=== PATIENT | female | born 1970 | race Caucasian/White ===

== ENCOUNTER 2016-08-25 17:59 | Emergency (ER) | payer SELFPAY ==
[2016-08-25 18:07] VITALS: BMI 34.3
[2016-08-25] MEDS ORDERED: LABETALOL HCL 5 MG/1 ML (100MG/20 ML VIAL) IVPUSH ONE (18:48)
--- NOTE | 2016-08-25 18:48 | PDOC ---
History of Present Illness - General History Source: Patient Exam Limitations: No Limitations - History of Present Illness Initial Comments: CHIEF COMPLAINT: 45 y/o afebrile female with PMH HTN (pt decided to stop Enalipril 3 months ago) and fibromyalgia c/o chest discomfort today. HISTORY OF PRESENT ILLNESS: The patient states for the past few days hasn't felt "well", yesterday had a bad headache and today has had chest pain. She states the chest pain is retrosternal and radiates through to her back. Upon arrival to the ER her BP was 230/120. She states she also feels nauseous and is SOB. She denies [place] now, neck pain, f/c, n/v/d, cough, hemoptysis, abd pain, hematuria, dysuria. Vital signs on arrival are notable for pulse of 99 with BP of 230/120. REVIEW OF SYSTEMS: GENERAL/CONSTITUTIONAL: No fever/chills. No weakness. No weight change. HEAD, EYES, EARS, NOSE AND THROAT: No change in vision. No ear pain or discharge. No sore throat. CARDIOVASCULAR: +SOB and CP radiating to back RESPIRATORY: No cough, wheezing, or hemoptysis. GASTROINTESTINAL: No abd pain, nausea, vomiting, diarrhea. GENITOURINARY: No dysuria, frequency, or change in urination. MUSCULOSKELETAL: No joint or muscle swelling or pain. No neck pain. +back pain SKIN: No rash or easy bruising. NEUROLOGIC: No headache, vertigo, loss of consciousness, or loss of sensation. PHYSICAL EXAM: GENERAL: The patient is awake, alert, and fully oriented, in no acute distress. She is other littlejohn well appearing. She is not cool, pale or diaphoretic. HEAD: Normal with no signs of trauma. ENT: Pupils equal, round and reactive to light, extraocular movements intact, sclera anicteric, conjunctiva clear. Neck supple. LUNGS: Clear to auscultation bilaterally. Normal excursion. No respiratory distress or use of accessory muscles. CV: Rapid rate/regular rhythm, S1/S2, no MRG. Cap refill < 2 sec. ABDOMEN: Soft, non-distended, non-tender even to deep palpation, no hepatomegaly or splenomegaly, no masses. EXTREMITIES: Normal range of motion, no edema. NEUROLOGICAL: Normal speech, normal gait. CN II-XII grossly intact. PSYCH: Normal mood, normal affect. SKIN: Warm, dry, normal turgor, no rashes or lesions noted. <Gunjan Weller - Last Filed: 08/25/16 19:08> <Franki Cline - Last Filed: 08/26/16 01:29> - General Chief Complaint: Blood Pressure Problem Stated Complaint: Blood Pressure Problem Time Seen by Provider: 08/25/16 18:42 Past History - Past Medical History Disorders: Yes (ovarian cyst, status post hysterectomy) HTN: Yes Other medical history: fibromyalgia - Psycho/Social/Smoking Cessation Hx Anxiety: No Suicidal Ideation: No Smoking History: Never smoked Have you smoked in the past 12 months: No Information on smoking cessation initiated: No Hx Alcohol Use: No Drug/Substance Use Hx: No Substance Use Type: None <Gunjan Weller - Last Filed: 08/25/16 19:08> <Franki Cline - Last Filed: 08/26/16 01:29> - Past Medical History Allergies/Adverse Reactions: Allergies Allergy/AdvReac Type Severity Reaction Status Date / Time No Known Allergies Allergy Verified 08/25/16 18:01 Home Medications: Ambulatory Orders NK [No Known Home Medication] 08/25/16 *Physical Exam - Vital Signs Last Vital Signs Temp Pulse Resp BP Pulse Ox 98.3 F 99 H 18 230/120 100 08/25/16 18:01 08/25/16 18:01 08/25/16 18:01 08/25/16 18:01 08/25/16 18:01 <Gunjan Weller - Last Filed: 08/25/16 19:08> - Vital Signs Last Vital Signs Temp Pulse Resp BP Pulse Ox 98.3 F 76 18 156/79 100 08/25/16 18:01 08/25/16 20:34 08/25/16 20:34 08/25/16 20:34 08/25/16 20:34 <Franki Cline - Last Filed: 08/26/16 01:29> Heart Score/ECG Review - ECG Intrepretation Comment:: Twelve-lead EKG was performed and reviewed by Dr. Vega. There is sinus tachycardia. The axis is normal. The intervals are normal. Nonspecific T wave abnormality. Impression: Abnormal twelve-lead EKG <Sadiq Welleree - Last Filed: 08/25/16 19:08> ED Treatment Course - LABORATORY CBC & Chemistry Diagram: 08/25/16 18:40 08/25/16 18:46 - RADIOLOGY Radiology Studies Ordered: Category Date Time Status CHEST CTA [CT] Stat CT Scan 08/25/16 18:36 Ordered <Gunjan Weller - Last Filed: 08/25/16 19:08> - LABORATORY CBC & Chemistry Diagram: 08/25/16 18:40 08/25/16 18:46 - ADDITIONAL ORDERS Additional order review: Laboratory Results 08/26/16 08/25/16 08/25/16 00:30 18:46 18:46 INR PTT (Actin FS) Sodium 142 Potassium 3.5 D Chloride 102 Carbon Dioxide 31 Anion Gap 9 BUN 12 Creatinine 0.6 Creat Clearance w eGFR > 60 Random Glucose 112 H D Calcium 9.6 Total Bilirubin 0.3 D AST 19 D ALT 37 D Alkaline Phosphatase 94 D Creatine Kinase 75 89 Troponin I < 0.02 < 0.02 Total Protein 8.1 Albumin 3.9 Serum , Qual Negative Urine Color Colorless Urine Appearance Clear Urine pH 7.0 Ur Specific [place] 1.010 Urine Protein Negative Urine Glucose (UA) Negative Urine Ketones Negative Urine Blood Negative Urine Nitrite Negative Urine Bilirubin Negative Urine Urobilinogen Negative Ur Leukocyte Esterase Negative Blood Type Antibody Screen 08/25/16 08/25/16 18:46 18:40 INR 1.06 PTT (Actin FS) 33.4 Sodium Potassium Chloride Carbon Dioxide Anion Gap BUN Creatinine Creat Clearance w eGFR Random Glucose Calcium Total Bilirubin AST ALT Alkaline Phosphatase Creatine Kinase Troponin I Total Protein Albumin Serum , Qual Urine Color Urine Appearance Urine pH Ur Specific [place] Urine Protein Urine Glucose (UA) Urine Ketones Urine Blood Urine Nitrite Urine Bilirubin Urine Urobilinogen Ur Leukocyte Esterase Blood Type A POSITIVE Antibody Screen Negative 08/25/16 18:40 RBC 4.46 MCV 83.2 MCHC 32.9 RDW 13.8 D MPV 8.4 Neutrophils % 62.4 Lymphocytes % 28.9 D Monocytes % 6.8 Eosinophils % 1.5 Basophils % 0.4 - RADIOLOGY Radiology Studies Ordered: Category Date Time Status ABDOMEN & PELVIS CT WITH CONTR [CT] Stat CT Scan 08/25/16 19:34 Completed GALLBLADDER US [US] Stat Ultrasound 08/25/16 21:20 Taken - Medications Given in the ED: ED Medications Discontinued Medications Generic Name Dose Route Start Last Admin Trade Name Miguel PRN Reason Stop Dose Admin Pantoprazole Sodium 40 mg/ 100 mls @ 200 mls/hr 08/25/16 21:22 08/25/16 22:57 Sodium Chloride IVPB 08/25/16 21:51 200 mls/hr ONCE ONE Administration Famotidine/Sodium Chloride 50 mls @ 100 mls/hr 08/25/16 21:22 08/25/16 22:57 Pepcid 20 Mg Premixed Ivpb - IVPB 08/25/16 21:51 100 mls/hr ONCE ONE Administration Labetalol HCl 10 mg 08/25/16 18:48 08/25/16 19:08 Normodyne Injection - IVPUSH 08/25/16 18:49 10 mg ONCE ONE Administration <Franki Cline - Last Filed: 08/26/16 01:29> Medical Decision Making - Medical Decision Making A/p: 45 y/o female with chest pain radiating to her back and SOB today with BP of 230/120. She has been non complaint with BP meds for the last 3 months. She is currently tachycardic. Plan is as follows: 1. EKG 2. CTA chest 3. Labs 4. IV labetalol Discussed the case with CHANDA Cline as well as Dr. Vega. I am signing this patient out to my colleague: CHANDA Cline In brief, this patient is being seen in the ED for a chief complaint of: Chest pain radiating to back, SOB I have completed the initial assessment interview note and have ordered: ekg, CTA, labs, IV labetalol I have reviewed the following results: ekg Pending results are: all Plan for disposition is as follows: Pending <Gunjan Weller - Last Filed: 08/25/16 19:08> *DC/Admit/Observation/Transfer <Gunjan eWller - Last Filed: 08/25/16 19:08> - Discharge Dispostion Admit: No <Franki Cline - Last Filed: 08/26/16 01:29> Diagnosis at time of Disposition: Gastroesophageal reflux disease Qualifiers: Esophagitis presence: without esophagitis Qualified Code(s): K21.9 - Gastro- esophageal reflux disease without esophagitis - Discharge Dispostion Disposition: HOME Condition at time of disposition: Improved - Patient Instructions Printed Discharge Instructions: DI for High Blood Pressure, DI for Chest Pain Additional Instructions: FOLLOW UP WITH DR. PARIS THIS WEEK. CALL TO SCHEDULE APPOINTMENT. MOTRIN OR TYLENOL FOR PAIN. RETURN IF SYMPTOMS WORSEN OR ANY CONCERNS FOR FURTHER EVALUATION. TAKE YOUR MEDICATIONS THAT WERE PRESCRIBED TO YOU. Print Language: CYMRAES
[2016-08-25 18:50] LABS: BASOPHIL 0.4 % (0-2.0); EOSINOPHIL 1.5 % (0-4.5); MCH 27.4 pg (25.7-33.7); MCHC 32.9 g/dl (32.0-36.0); MEAN CELL VOLUME 83.2 fl (80-96); MEAN PLT VOLUME 8.4 fl (7.5-11.1); NEUTROPHILS 62.4 % (42.8-82.8); PLATELET COUNT 300 K/MM3 (134-434); RDW 13.8 % (11.6-15.6); WHITE BLOOD COUNT 7.6 K/mm3 (4.0-10.0)
[2016-08-25] MEDS ORDERED: LABETALOL HCL 5 MG/1 ML (200MG/40ML VIAL) IVPB ONE (18:53)
[2016-08-25 19:03] LABS: INR 1.06 (0.82-1.09); PROTHROMBIN TIME (PATIENT) 11.7 SEC (9.98-11.88)
[2016-08-25 19:06] LABS: ACTIVATED PTT 33.4 SECONDS (26.9-34.4)
[2016-08-25 19:18] LABS: ALBUMIN 3.9 g/dl (3.4-5.0); ANION GAP 9 (8-16); BILIRUBIN,TOTAL 0.3 mg/dL (0.2-1.0); CALCIUM 9.6 mg/dL (8.5-10.1); CO2 31 mmol/L (21-32); CREATININE 0.6 mg/dL (0.55-1.02); GLUCOSE,RANDOM 112 mg/dL (74-106); SGOT/AST 19 U/L (15-37); SGPT/ALT 37 U/L (12-78); TOT PROT 8.1 g/dl (6.4-8.2)
[2016-08-25 19:21] LABS: ALK PHOS 94 U/L (45-117); TROPONIN I < 0.02 ng/ml (0.00-0.05)
[2016-08-25 20:06] LABS: URINE APPEARANCE CLEAR; URINE BILIRUBIN NEGATIVE (NEGATIVE); URINE BLOOD NEGATIVE (NEGATIVE); URINE COLOR COLORLESS; URINE GLUCOSE (UA) NEGATIVE (NEGATIVE); URINE KETONE NEGATIVE (NEGATIVE); URINE LEUK ESTERASE NEGATIVE (NEGATIVE); URINE NITRITE NEGATIVE (NEGATIVE); URINE PROTEIN NEGATIVE (NEGATIVE); URINE UROBILINOGEN NEGATIVE E.U./dl (0.2-1.0)
[2016-08-25] MEDS ORDERED: FAMOTIDINE 20 MG/50 ML IVPB 50 ML IVPB ONE ×2 (21:22→22:49)
[2016-08-25] MEDS ORDERED: PANTOPRAZOLE SODIUM 40 MG in SODIUM CHLORIDE 100 ML IVPB ONE (21:22)
[2016-08-25] MEDS ORDERED: PANTOPRAZOLE SODIUM 100 ML IVPB ONE (22:49)
[2016-08-26 01:21] LABS: TROPONIN I < 0.02 ng/ml (0.00-0.05)
[2016-08-26 01:42] VITALS: BP 147/79; PULSE 75; TEMP 97.8
--- NOTE | 2016-08-27 11:15 | EKG ---
Test Reason : Blood Pressure : / mmHG Vent. Rate : 106 BPM Atrial Rate : 106 BPM P-R Int : 160 ms QRS Dur : 102 ms QT Int : 354 ms P-R-T Axes : 052 001 039 degrees QTc Int : 470 ms SINUS TACHYCARDIA POSSIBLE LEFT ATRIAL ENLARGEMENT NONSPECIFIC ST ABNORMALITY ABNORMAL ECG WHEN COMPARED WITH ECG OF 14-MAR-2013 00:07, NO SIGNIFICANT CHANGE WAS FOUND Confirmed by GINA WADSWORTH MD ([id number]) on 08/27/2016 11:15:06 AM Referred By: Confirmed By:GINA WADSWORTH MD
== END 2016-08-26 01:42 | disposition home or self-care (01) ==
LOC: JER 17:59
PROC: 3E033GC Introduction of Other Therapeutic Substance into Peripheral Vein, Percutaneous Approach (ICD-10-PCS; principal; 2016-08-25)
PROC: 3E033GC Introduction of Other Therapeutic Substance into Peripheral Vein, Percutaneous Approach (ICD-10-PCS; 2016-08-25)
PROC: 3E033GC Introduction of Other Therapeutic Substance into Peripheral Vein, Percutaneous Approach (ICD-10-PCS; 2016-08-25)
DX: K21.9 Gastro-esophageal reflux disease without esophagitis (principal); I10 Essential (primary) hypertension; M79.7 Fibromyalgia
CPT/HCPCS: 36415; 71275-TC; 74177-TC; 76705-TC; 80053; 81003; 82550; 84484; 84703; 85025; 85610; 85730; 86850; 86900; 86901; 93005; 93010; 99284-25

== ENCOUNTER 2017-03-24 10:45 | Emergency (ER) | payer OTHER ==
[2017-03-24 10:57] VITALS: BMI 36.6
[2017-03-24] MEDS ORDERED: SODIUM CHLORIDE 1,000 ML IV STA (11:32)
[2017-03-24] MEDS ORDERED: MECLIZINE HCL 25 MG TABLET (FP) PO ONE (11:32)
[2017-03-24] MEDS ORDERED: MECLIZINE HCL 25 MG TABLET (FP) ONE (11:45)
--- NOTE | 2017-03-24 11:59 | PDOC ---
History of Present Illness <Mandi Ricci - Last Filed: 03/24/17 13:45> - History of Present Illness Initial Comments: 03/24/17 11:54 "The patient is a 46 year old female, with a significant past medical history of hypertension and fibromyalgia, who presents to the emergency department with lightheadedness and dizziness for 2 days. Pt denies blurred vision but states that her head feels fuzzy. She denies double vision. She reports room spinning sensation with bending forward. She denies dizziness at rest. She reportedly had a headache yesterday that has since resolved. Of note, pt is currently taking lovenox for treatment of PE. She states she had pleuritic chest pain earlier this month and had a work up at [facility] that included a D dimer that was slightly positive and a CTA that was equivocal. She denies chest pain, shortness of breath. She denies fever, chills, nausea, vomit, diarrhea and constipation. She denies dysuria, frequency, urgency and hematuria. Allergies: NKDA PCP: " <Velasquez Mendoza - Last Filed: 03/27/17 08:51> - General Chief Complaint: Lightheaded Stated Complaint: ELEVATED BP Time Seen by Provider: 03/24/17 11:01 Past History <Mandi Ricci - Last Filed: 03/24/17 13:45> - Past Medical History COPD: No Disorders: Yes (ovarian cyst, status post hysterectomy) HTN: Yes - Surgical History Abdominal Surgery: Yes - Suicide/Smoking/Psychosocial Hx Smoking History: Never smoked Have you smoked in the past 12 months: No Hx Alcohol Use: No Drug/Substance Use Hx: No Substance Use Type: None <Velasquez Mendoza - Last Filed: 03/27/17 08:51> - Past Medical History Allergies/Adverse Reactions: Allergies Allergy/AdvReac Type Severity Reaction Status Date / Time No Known Allergies Allergy Verified 03/24/17 10:52 Home Medications: Ambulatory Orders Enalapril Maleate 20 mg PO DAILY 08/27/16 Enoxaparin Sodium [Lovenox] 120 mg SQ HS 03/24/17 Hydrochlorothiazide [Hctz -] 25 mg PO DAILY 03/24/17 Review of Systems - Review of Systems Comments:: 03/24/17 11:59 "GENERAL/CONSTITUTIONAL: No fever or chills. No weakness. HEAD, EYES, EARS, NOSE AND THROAT: No change in vision. No ear pain or discharge. No sore throat. CARDIOVASCULAR: +Lightheadedness, No chest pain or shortness of breath. RESPIRATORY: No cough, wheezing, or hemoptysis. GASTROINTESTINAL: No nausea, vomiting, diarrhea or constipation. GENITOURINARY: No dysuria, frequency, or change in urination. MUSCULOSKELETAL: No joint or muscle swelling or pain. No neck or back pain. SKIN: No rash NEUROLOGIC: + vertigo, No headache, loss of consciousness, or change in strength /sensation. ENDOCRINE: No increased thirst. No abnormal weight change. HEMATOLOGIC/LYMPHATIC: No anemia, easy bleeding, or history of blood clots. ALLERGIC/IMMUNOLOGIC: No hives or skin allergy. " <Velasquez Mendoza - Last Filed: 03/27/17 08:51> *Physical Exam - Vital Signs Last Vital Signs Temp Pulse Resp BP Pulse Ox 98.4 F 99 H 18 136/78 99 03/24/17 10:52 03/24/17 10:52 03/24/17 10:52 03/24/17 10:52 03/24/17 10:52 <Mandi Ricci - Last Filed: 03/24/17 13:45> - Vital Signs Last Vital Signs Temp Pulse Resp BP Pulse Ox 98.4 F 99 H 18 136/78 99 03/24/17 10:52 03/24/17 10:52 03/24/17 10:52 03/24/17 10:52 03/24/17 10:52 - Physical Exam Comments: 03/24/17 11:59 "GENERAL: Awake, alert, and fully oriented, in no acute distress HEAD: No signs of trauma EYES: PERRLA, EOMI, sclera anicteric, conjunctiva clear ENT: Auricles normal inspection, hearing grossly normal, nares patent, oropharynx clear without exudates. Moist mucosa NECK: Nontender, no stepoffs, Normal ROM, supple, no lymphadenopathy, JVD, or masses LUNGS: Breath sounds equal, clear to auscultation bilaterally. No wheezes, and no crackles HEART: Regular rate and rhythm, normal S1 and S2, no murmurs, rubs or gallops ABDOMEN: Soft, nontender, normoactive bowel sounds. No guarding, no rebound. No masses EXTREMITIES: Normal range of motion, no edema. No clubbing or cyanosis. No cords, erythema, or tenderness NEUROLOGICAL: Cranial nerves II through XII intact. 5/5 strength and sensation in all extremities, Normal speech, normal gait SKIN: Warm, Dry, normal turgor, no rashes or lesions noted. " <OuVelasquez - Last Filed: 03/27/17 08:51> Heart Score/ECG Review - History History: Slightly suspicious - Electrocardiogram EKG: Normal - Age Age: 45-65 - Risk Factors Based on the list above the patient has:: No risk factors known - Troponin Troponin: </= normal limit - Score Heart Score - Total: 1 - ECG Impressions Comment:: 03/24/17 12:00 NSR, no ISSA/STDs, no TWIs, axis wnl, intervals wnl, rate 70 <Velasquez Mendoza - Last Filed: 03/27/17 08:51> ED Treatment Course - LABORATORY CBC & Chemistry Diagram: 03/24/17 12:00 03/24/17 12:00 - ADDITIONAL ORDERS Additional order review: Laboratory Results 03/24/17 03/24/17 03/24/17 12:00 12:00 12:00 WBC 6.1 RBC 4.69 Hgb 12.9 Hct 39.5 MCV 84.1 MCH 27.4 MCHC 32.6 RDW 13.7 Plt Count 299 MPV 8.4 Neutrophils % 69.8 Lymphocytes % 21.7 D Monocytes % 7.1 Eosinophils % 0.8 Basophils % 0.6 Sodium 137 Potassium 4.0 Chloride 100 Carbon Dioxide 31 Anion Gap 6 L BUN 16 Creatinine 0.8 Creat Clearance w eGFR > 60 Random Glucose 106 Calcium 9.0 Total Bilirubin 0.3 AST 28 ALT 71 Alkaline Phosphatase 91 Creatine Kinase 71 Troponin I < 0.02 B-Natriuretic Peptide 13.29 Total Protein 8.5 H Albumin 4.1 03/24/17 12:00 RBC 4.69 MCV 84.1 MCHC 32.6 RDW 13.7 MPV 8.4 Neutrophils % 69.8 Lymphocytes % 21.7 D Monocytes % 7.1 Eosinophils % 0.8 Basophils % 0.6 - RADIOLOGY Radiograph Interpretation: EXAM#: TYPE/EXAM: RESULT: [id number] CT/HEAD CT WITHOUT CONTRAST Lightheadedness CT scan of the brain without intravenous contrast. Compared to prior CT scan of the head dated 03/14/2013 The ventricles and basal cisterns appear unremarkable. No mass lesion, gross acute infarct or intracranial hemorrhage are identified. Prominent dense calcified/ossified density in the anterior falx which is nonspecific. Visualized paranasal sinuses and mastoid air cells are well-aerated. The calvarium is intact. Impression: No evidence of a focal intracranial lesion or hemorrhage seen. Reported By: Candy Marie MD 03/24/17 1303 EXAM#: TYPE/EXAM: RESULT: [id number] RAD/CHEST X-RAY PORTABLE* Presyncope Chest x ray, AP sitting A frontal view of the chest was obtained. The cardiac silhouette is within normal limits in size. The lung is clear. Mediastinum and visualized osseous structures appear intact . Impression: Unremarkable examination. Reported By: Candy Marie MD 03/24/17 1238 - Medications Given in the ED: ED Medications Discontinued Medications Generic Name Dose Route Start Last Admin Trade Name Freq PRN Reason Stop Dose Admin Sodium Chloride 1,000 mls @ 1,000 mls/hr 03/24/17 11:32 03/24/17 12:05 Normal Saline - IV 03/24/17 12:31 1,000 mls/hr ASDIR STA Administration Meclizine HCl 25 mg 03/24/17 11:32 03/24/17 12:05 Antivert - PO 03/24/17 11:33 25 mg ONCE ONE Administration <Mandi Ricci - Last Filed: 03/24/17 13:45> - LABORATORY CBC & Chemistry Diagram: 03/24/17 12:00 03/24/17 12:00 - RADIOLOGY Radiology Studies Ordered: Category Date Time Status HEAD CT WITHOUT CONTRAST [CT] Stat CT Scan 03/24/17 11:31 Ordered CHEST X-RAY PORTABLE* [RAD] Stat Radiology 03/24/17 11:28 Ordered <Velasquez Mendoza - Last Filed: 03/27/17 08:51> Medical Decision Making - Medical Decision Making 03/24/17 12:00 46 F with lightheadedness and vertigo. Likely peripheral vertigo as sensation is worse with bending forward. Pt being treated for presumed PE but with no CP/ SOB at this time. Vitals wnl. - Labs, trop - CT head given pt is on lovenox - Meclizine, IVF 03/24/17 13:45 CBC,CMP WBC 6.1 K/mm3 (4.0-10.0) 03/24/17 12:00 RBC 4.69 M/mm3 (3.60-5.2) 03/24/17 12:00 Hgb 12.9 GM/dL (10.7-15.3) 03/24/17 12:00 Hct 39.5 % (32.4-45.2) 03/24/17 12:00 MCV 84.1 fl (80-96) 03/24/17 12:00 MCH 27.4 pg (25.7-33.7) 03/24/17 12:00 MCHC 32.6 g/dl (32.0-36.0) 03/24/17 12:00 RDW 13.7 % (11.6-15.6) 03/24/17 12:00 Plt Count 299 K/MM3 (134-434) 03/24/17 12:00 MPV 8.4 fl (7.5-11.1) 03/24/17 12:00 Neutrophils % 69.8 % (42.8-82.8) 03/24/17 12:00 Lymphocytes % 21.7 % (8-40) D 03/24/17 12:00 Monocytes % 7.1 % (3.8-10.2) 03/24/17 12:00 Eosinophils % 0.8 % (0-4.5) 03/24/17 12:00 Basophils % 0.6 % (0-2.0) 03/24/17 12:00 Sodium 137 mmol/L (136-145) 03/24/17 12:00 Potassium 4.0 mmol/L (3.5-5.1) 03/24/17 12:00 Chloride 100 mmol/L (98-107) 03/24/17 12:00 Carbon Dioxide 31 mmol/L (21-32) 03/24/17 12:00 Anion Gap 6 (8-16) L 03/24/17 12:00 BUN 16 mg/dL (7-18) 03/24/17 12:00 Creatinine 0.8 mg/dL (0.55-1.02) 03/24/17 12:00 Creat Clearance w eGFR > 60 (>60) 03/24/17 12:00 Random Glucose 106 mg/dL (74-106) 03/24/17 12:00 Calcium 9.0 mg/dL (8.5-10.1) 03/24/17 12:00 Total Bilirubin 0.3 mg/dL (0.2-1.0) 03/24/17 12:00 AST 28 U/L (15-37) 03/24/17 12:00 ALT 71 U/L (12-78) 03/24/17 12:00 Alkaline Phosphatase 91 U/L (45-117) 03/24/17 12:00 Creatine Kinase 71 IU/L (26-192) 03/24/17 12:00 Troponin I < 0.02 ng/ml (0.00-0.05) 03/24/17 12:00 B-Natriuretic Peptide 13.29 pg/ml (5-125) 03/24/17 12:00 Total Protein 8.5 g/dl (6.4-8.2) H 03/24/17 12:00 Albumin 4.1 g/dl (3.4-5.0) 03/24/17 12:00 Pt reassessed - now with improvement in dizziness. CTH negative, CXR clear. Pt well appearing with steady gait, normal vitals. Clinically stable for DC. I discussed the physical exam findings, ancillary test results and final diagnoses with the patient. I answered all of the patient's questions. The patient was satisfied with the care received and felt comfortable with the discharge plan and treatment plan. The patient agrees to follow up with the primary care physician within 24-72 hours. <Velasquez Mendoza - Last Filed: 03/27/17 08:51> *DC/Admit/Observation/Transfer <Mandi Ricci - Last Filed: 03/24/17 13:45> - Attestations Physician Attestion: 03/24/17 13:50 I, Dr. Velasquez Mendoza MD, attest that this document has been prepared under my direction and personally reviewed by me in its entirety. I further attest, that it accurately reflects all work, treatment, procedures and medical decision -making performed by me. <Velasquez Mendoza - Last Filed: 03/27/17 08:51> Diagnosis at time of Disposition: Vertigo - Discharge Dispostion Disposition: HOME - Referrals Referrals: Nick Kaufman DO [Staff Physician] - Jim Richard MD [Staff Physician] - - Patient Instructions Printed Discharge Instructions: DI for Vertigo Additional Instructions: Please call the numbers provided to make an appointment with an ENT doctor and a neurologist to have your vertigo further evaluated. If you experience worsening dizziness, lightheadedness, headache, chest pain, shortness of breath, or any other concerning symptoms, return to the ER immediately. Otherwise, follow up with your primary doctor within 72 hours.
[2017-03-24 12:06] LABS: BASO % 0.6 % (0-2.0); EOS % 0.8 % (0-4.5); HEMATOCRIT 39.5 % (32.4-45.2); HEMOGLOBIN 12.9 GM/dL (10.7-15.3); LYMPH % 21.7 % (8-40); MCH 27.4 pg (25.7-33.7); MCHC 32.6 g/dl (32.0-36.0); MEAN CELL VOLUME 84.1 fl (80-96); MEAN PLT VOLUME 8.4 fl (7.5-11.1); MONO % 7.1 % (3.8-10.2); NEUT % 69.8 % (42.8-82.8); PLATELET COUNT 299 K/MM3 (134-434); RBC 4.69 M/mm3 (3.60-5.2); RDW 13.7 % (11.6-15.6); WHITE BLOOD COUNT 6.1 K/mm3 (4.0-10.0)
--- NOTE | 2017-03-24 12:44 | EKG ---
Test Reason : Blood Pressure : / mmHG Vent. Rate : 070 BPM Atrial Rate : 070 BPM P-R Int : 140 ms QRS Dur : 102 ms QT Int : 388 ms P-R-T Axes : 053 008 019 degrees QTc Int : 419 ms NORMAL SINUS RHYTHM MINIMAL VOLTAGE CRITERIA FOR LVH, MAY BE NORMAL VARIANT BORDERLINE ECG WHEN COMPARED WITH ECG OF 27-AUG-2016 09:49, NO SIGNIFICANT CHANGE WAS FOUND Confirmed by TRACY VOGEL, JUDITH ([id number]) on 03/24/2017 12:43:45 PM Referred By: Confirmed By:JUDITH MOLINA MD
[2017-03-24 12:48] LABS: ALBUMIN 4.1 g/dl (3.4-5.0); ANION GAP 6 (8-16); BLOOD UREA NITROGEN 16 mg/dL (7-18); CHLORIDE 100 mmol/L (98-107); CO2 31 mmol/L (21-32); CREATININE 0.8 mg/dL (0.55-1.02); GLUCOSE,RANDOM 106 mg/dL (74-106); SGOT/AST 28 U/L (15-37); SGPT/ALT 71 U/L (12-78); SODIUM 137 mmol/L (136-145)
[2017-03-24 12:49] LABS: ALK PHOS 91 U/L (45-117); BILIRUBIN,TOTAL 0.3 mg/dL (0.2-1.0); TOT PROT 8.5 g/dl (6.4-8.2)
[2017-03-24 12:50] LABS: N-TERMINAL BNP 13.29 pg/ml (5-125)
[2017-03-24 14:22] VITALS: BP 122/78; PULSE 82; TEMP 98.7
== END 2017-03-24 14:22 | disposition home or self-care (01) ==
LOC: JER 10:45
PROC: 3E0337Z Introduction of Electrolytic and Water Balance Substance into Peripheral Vein, Percutaneous Approach (ICD-10-PCS; principal; 2017-03-24)
DX: H81.399 Other peripheral vertigo, unspecified ear (principal); I10 Essential (primary) hypertension; M79.7 Fibromyalgia; Z86.711 Personal history of pulmonary embolism; Z79.01 Long term (current) use of anticoagulants
CPT/HCPCS: 36415; 70450-TC; 71045-TC; 80053; 82550; 83880; 84484; 85025; 93005; 93010; 99282-25

== ENCOUNTER 2017-11-23 23:25 | Emergency (ER) | payer OTHER ==
[2017-11-23 23:35] VITALS: TEMP 98.2; BMI 36.0
[2017-11-24] MEDS ORDERED: ASPIRIN 81 MG CHEWABLE TABLETS PO ONE (00:15)
--- NOTE | 2017-11-24 00:15 | PDOC ---
History of Present Illness - General Chief Complaint: Chest Pain Stated Complaint: CHEST PAIN Time Seen by Provider: 11/24/17 00:11 History Source: Patient Exam Limitations: No Limitations - History of Present Illness Presenting Symptoms: Chest Pain Timing/Duration: reports: changing over time Severity/Quality: reports: mild Location: reports: substernal Chest Pain Radiation: reports: other (SCAPULA) Activities at Onset: reports: none Prior Chest Pain/Cardiac Workup: reports: Other (last time she felt this pain , she states she had a pulmonary embolism) Modifying Factors: improves with: other (pt was relieved with tylenol) Nitro Today/Relief: Yes: no nitro taken today Aspirin Received prior to arrival (Core Measure): Yes: 81 mg x 2, provided by ED Past History - Past Medical History Allergies/Adverse Reactions: Allergies Allergy/AdvReac Type Severity Reaction Status Date / Time No Known Allergies Allergy Verified 11/23/17 23:36 Home Medications: Ambulatory Orders Enalapril Maleate 20 mg PO DAILY 08/27/16 Hydrochlorothiazide [Hctz -] 25 mg PO DAILY 03/24/17 Rivaroxaban [Xarelto -] 15 mg PO DAILY 11/24/17 COPD: No Disorders: Yes (ovarian cyst, status post hysterectomy) HTN: Yes Other medical history: PE - Surgical History Abdominal Surgery: Yes - Suicide/Smoking/Psychosocial Hx Smoking History: Never smoked Have you smoked in the past 12 months: No Hx Alcohol Use: No Drug/Substance Use Hx: No Substance Use Type: None *Physical Exam - Vital Signs Last Vital Signs Temp Pulse Resp BP Pulse Ox 98.2 F 88 18 132/81 100 11/23/17 23:28 11/23/17 23:28 11/23/17 23:28 11/23/17 23:28 11/23/17 23:28 ED Treatment Course - LABORATORY CBC & Chemistry Diagram: 11/24/17 00:21 11/24/17 00:21 - ADDITIONAL ORDERS Additional order review: Laboratory Results 11/24/17 11/24/17 11/24/17 00:21 00:21 00:21 PT with INR INR D-Dimer < 200 Sodium 139 Potassium 3.8 Chloride 103 Carbon Dioxide 32 Anion Gap 4 L BUN 19 H Creatinine 0.7 Creat Clearance w eGFR > 60 Random Glucose 114 H Calcium 8.7 Magnesium 2.2 Total Bilirubin 0.3 AST 12 L ALT 20 Alkaline Phosphatase 74 Creatine Kinase 81 Troponin I < 0.02 Total Protein 7.6 Albumin 3.7 Serum , Qual Negative 11/24/17 00:21 PT with INR 26.10 H INR 2.31 H D-Dimer Sodium Potassium Chloride Carbon Dioxide Anion Gap BUN Creatinine Creat Clearance w eGFR Random Glucose Calcium Magnesium Total Bilirubin AST ALT Alkaline Phosphatase Creatine Kinase Troponin I Total Protein Albumin Serum , Qual 11/24/17 00:21 RBC 3.99 MCV 84.4 MCHC 33.7 RDW 13.3 MPV 7.8 Neutrophils % 67.6 Lymphocytes % 22.8 Monocytes % 7.1 Eosinophils % 2.1 D Basophils % 0.4 - RADIOLOGY Radiology Studies Ordered: Category Date Time Status CHEST PA & LAT [RAD] Stat Radiology 11/24/17 01:23 Taken - Medications Given in the ED: ED Medications Discontinued Medications Generic Name Dose Route Start Last Admin Trade Name Freq PRN Reason Stop Dose Admin Aspirin 162 mg 11/24/17 00:15 11/24/17 00:46 Asa - PO 11/24/17 00:16 162 mg ONCE ONE Administration Sodium Chloride 1,000 mls @ 1,000 mls/hr 11/24/17 00:50 11/24/17 00:58 Normal Saline - IV 11/24/17 01:49 1,000 mls/hr ASDIR STA Administration Medical Decision Making - Medical Decision Making 11/24/17 02:21 today's ekg when compared to 03/24/17 is unchanged neg trop neg d dimer labs reviewed unremarkable cxr napd , normal mediastinum,no infiltrates,no ptx *DC/Admit/Observation/Transfer - Referrals Referrals: Skip Jaime [Primary Care Provider] - - Patient Instructions - Post Discharge Activity
[2017-11-24 00:35] LABS: BASO % 0.4 % (0-2.0); EOS % 2.1 % (0-4.5); HEMATOCRIT 33.6 % (32.4-45.2); HEMOGLOBIN 11.3 GM/dL (10.7-15.3); LYMPH % 22.8 % (8-40); MCH 28.4 pg (25.7-33.7); MCHC 33.7 g/dl (32.0-36.0); MEAN CELL VOLUME 84.4 fl (80-96); MEAN PLT VOLUME 7.8 fl (7.5-11.1); MONO % 7.1 % (3.8-10.2); NEUT % 67.6 % (42.8-82.8); PLATELET COUNT 279 K/MM3 (134-434); RBC 3.99 M/mm3 (3.60-5.2); RDW 13.3 % (11.6-15.6)
[2017-11-24] MEDS ORDERED: ASPIRIN 81 MG CHEWABLE TABLETS ONE (00:39)
[2017-11-24 00:46] LABS: INR 2.31 (0.83-1.09); PROTHROMBIN TIME (PATIENT) 26.1 SEC (9.7-13.0)
[2017-11-24] MEDS ORDERED: SODIUM CHLORIDE 1,000 ML IV STA (00:50)
[2017-11-24 01:06] LABS: ALBUMIN 3.7 g/dl (3.4-5.0); ALK PHOS 74 U/L (45-117); ANION GAP 4 MMOL/L (8-16); BILIRUBIN,TOTAL 0.3 mg/dL (0.2-1); BLOOD UREA NITROGEN 19 mg/dL (7-18); CALCIUM 8.7 mg/dL (8.5-10.1); CHLORIDE 103 mmol/L (98-107); CO2 32 mmol/L (21-32); CREATININE 0.7 mg/dL (0.55-1.3); GLUCOSE,RANDOM 114 mg/dL (74-106); MAGNESIUM 2.2 mg/dL (1.8-2.4); POTASSIUM 3.8 mmol/L (3.5-5.1); SGOT/AST 12 U/L (15-37); SGPT/ALT 20 U/L (13-61); SODIUM 139 mmol/L (136-145); TOT PROT 7.6 g/dl (6.4-8.2)
[2017-11-24] MEDS ORDERED: FAMOTIDINE 20 MG/50 ML IVPB 20 MG/50 ML MG IVPB ONE ×2 (02:28→03:10)
[2017-11-24] MEDS ORDERED: MAG HYDROX/AL HYDROX/SIMETH -MYLANTA- ORAL SUSPENSION PO ONE (02:29)
[2017-11-24] MEDS ORDERED: ACETAMINOPHEN 1000 MG/100 ML VIAL (NON FORMULARY) IVPB ONE (02:36)
[2017-11-24] MEDS ORDERED: ACETAMINOPHEN INJECTION 100 ML IVPB ONE (03:09)
[2017-11-24] MEDS ORDERED: MAG HYDROX/AL HYDROX/SIMETH 30 ML UNIT-DOSE CUP ONE (03:10)
--- NOTE | 2017-11-24 04:23 | PDOC ---
*Physical Exam - Vital Signs Last Vital Signs Temp Pulse Resp BP Pulse Ox 98.2 F 88 18 132/81 100 11/23/17 23:28 11/23/17 23:28 11/23/17 23:28 11/23/17 23:28 11/23/17 23:28 ED Treatment Course - LABORATORY CBC & Chemistry Diagram: 11/24/17 00:21 11/24/17 00:21 - ADDITIONAL ORDERS Additional order review: Laboratory Results 11/24/17 11/24/17 11/24/17 03:15 00:21 00:21 PT with INR INR D-Dimer < 200 Sodium 139 Potassium 3.8 Chloride 103 Carbon Dioxide 32 Anion Gap 4 L BUN 19 H Creatinine 0.7 Creat Clearance w eGFR > 60 Random Glucose 114 H Calcium 8.7 Magnesium 2.2 Total Bilirubin 0.3 AST 12 L ALT 20 Alkaline Phosphatase 74 Creatine Kinase 81 Troponin I Cancelled < 0.02 Total Protein 7.6 Albumin 3.7 Serum , Qual 11/24/17 11/24/17 00:21 00:21 PT with INR 26.10 H INR 2.31 H D-Dimer Sodium Potassium Chloride Carbon Dioxide Anion Gap BUN Creatinine Creat Clearance w eGFR Random Glucose Calcium Magnesium Total Bilirubin AST ALT Alkaline Phosphatase Creatine Kinase Troponin I Total Protein Albumin Serum , Qual Negative 11/24/17 00:21 RBC 3.99 MCV 84.4 MCHC 33.7 RDW 13.3 MPV 7.8 Neutrophils % 67.6 Lymphocytes % 22.8 Monocytes % 7.1 Eosinophils % 2.1 D Basophils % 0.4 - Medications Given in the ED: ED Medications Discontinued Medications Generic Name Dose Route Start Last Admin Trade Name Miguel PRN Reason Stop Dose Admin Acetaminophen 1,000 mg 11/24/17 02:36 11/24/17 03:28 Ofirmev Injection - IVPB 11/24/17 02:37 1,000 mg ONCE ONE Administration Al Hydroxide/Mg Hydroxide 30 ml 11/24/17 02:29 11/24/17 03:23 Mylanta Suspension - PO 11/24/17 02:30 30 ml ONCE ONE Administration Aspirin 162 mg 11/24/17 00:15 11/24/17 00:46 Asa - PO 11/24/17 00:16 162 mg ONCE ONE Administration Sodium Chloride 1,000 mls @ 1,000 mls/hr 11/24/17 00:50 11/24/17 00:58 Normal Saline - IV 11/24/17 01:49 1,000 mls/hr ASDIR STA Administration Famotidine/Sodium Chloride 20 mg in 50 mls @ 100 mls/hr 11/24/17 02:28 03:23 Pepcid 20 Mg Premixed Ivpb - IVPB 11/24/17 02:57 100 mls/hr ONCE ONE Administration Medical Decision Making - Medical Decision Making 11/24/17 04:21 47 F with atypical chest pain. - Ddimer negative - Trop negative x1 Sign out received from Dr. Vega at 2AM, pending repeat troponin. 11/24/17 05:05 Trop negative x2 Pt reassessed - reports resolution of chest pain. Pt is well appearing, with normal vitals. Clinically stable for DC at this time. I discussed the physical exam findings, ancillary test results and final diagnoses with the patient. I answered all of the patient's questions. The patient was satisfied with the care received and felt comfortable with the discharge plan and treatment plan. The patient agrees to follow up with the primary care physician within 24-72 hours. *DC/Admit/Observation/Transfer Diagnosis at time of Disposition: Chest pain - Discharge Dispostion Disposition: HOME - Referrals Referrals: Skip Jaime [Primary Care Provider] - - Patient Instructions Printed Discharge Instructions: DI for Atypical Chest Pain Additional Instructions: Please follow up with your primary care doctor within 1 week for further evaluation of your chest pain. If you experience worsening chest pain, shortness of breath, or any other concerning symptoms, return to the ER immediately. - Post Discharge Activity - Attestations Physician Attestion: 11/24/17 04:23 I, Dr. Velasquez Mendoza MD, attest that this document has been prepared under my direction and personally reviewed by me in its entirety. I further attest, that it accurately reflects all work, treatment, procedures and medical decision -making performed by me.
[2017-11-24 05:12] VITALS: BP 130/78; PULSE 86
--- NOTE | 2017-11-24 13:22 | EKG ---
Test Reason : Blood Pressure : / mmHG Vent. Rate : 094 BPM Atrial Rate : 094 BPM P-R Int : 144 ms QRS Dur : 104 ms QT Int : 376 ms P-R-T Axes : 050 017 032 degrees QTc Int : 470 ms NORMAL SINUS RHYTHM NORMAL ECG WHEN COMPARED WITH ECG OF 24-MAR-2017 11:45, QT HAS LENGTHENED Confirmed by JUDITH MOLINA MD ([id number]) on 11/24/2017 1:22:20 PM Referred By: Confirmed By:JUDITH MOLINA MD
== END 2017-11-24 05:12 | disposition home or self-care (01) ==
LOC: JER 23:25
PROC: 3E0337Z Introduction of Electrolytic and Water Balance Substance into Peripheral Vein, Percutaneous Approach (ICD-10-PCS; principal; 2017-11-23)
PROC: 3E033GC Introduction of Other Therapeutic Substance into Peripheral Vein, Percutaneous Approach (ICD-10-PCS; 2017-11-23)
PROC: 3E033NZ Introduction of Analgesics, Hypnotics, Sedatives into Peripheral Vein, Percutaneous Approach (ICD-10-PCS; 2017-11-23)
DX: R07.9 Chest pain, unspecified (principal); I10 Essential (primary) hypertension; Z86.711 Personal history of pulmonary embolism; Z79.01 Long term (current) use of anticoagulants
CPT/HCPCS: 36415; 71046-TC-FY; 80053; 82550; 83735; 84484; 84703; 85025; 85379; 85610; 93005; 93010; 99283-25; J0131; J7030

== ENCOUNTER 2018-03-23 05:17 | Emergency (ER) | payer OTHER ==
[2018-03-23] MEDS ORDERED: ALBUTEROL SO4 2.5/IPRATROPIUM 0.5 INH SOL 3 ML VIAL.NEB. NEB ONE (05:55)
[2018-03-23] MEDS ORDERED: ACETAMINOPHEN 325 MG TABLET (FP) PO ONE (05:55)
--- NOTE | 2018-03-23 05:55 | PDOC ---
History of Present Illness - General Chief Complaint: Cold Symptoms Stated Complaint: COUGH Time Seen by Provider: 03/23/18 05:50 - History of Present Illness Initial Comments: 03/23/18 05:54 47 year old female with cough, nasal congestion and fever x 2 days. reports that grandkids with similar symptoms with URI this weekend. denies fever/ chills, NVD< abdominal pain Past History - Past Medical History Allergies/Adverse Reactions: Allergies Allergy/AdvReac Type Severity Reaction Status Date / Time No Known Allergies Allergy Verified 03/23/18 06:23 Home Medications: Ambulatory Orders Enalapril Maleate 20 mg PO DAILY 08/27/16 Hydrochlorothiazide [Hctz -] 25 mg PO DAILY 03/24/17 Rivaroxaban [Xarelto -] 15 mg PO DAILY 11/24/17 Albuterol 0.083% Nebulizer Anastasia [Ventolin 0.083% Nebulizer Soln -] 1 neb NEB Q4H PRN #1 vial 03/23/18 Oseltamivir Phosphate [Tamiflu -] 75 mg PO BID #10 capsule 03/23/18 COPD: No Disorders: Yes (ovarian cyst, status post hysterectomy) HTN: Yes - Surgical History Abdominal Surgery: Yes - Suicide/Smoking/Psychosocial Hx Smoking History: Never smoked Have you smoked in the past 12 months: No Hx Alcohol Use: No Drug/Substance Use Hx: No Substance Use Type: None *Physical Exam - Vital Signs 03/23/18 06:35 Last Vital Signs Temp Pulse Resp BP Pulse Ox 97.7 F 104 H 18 124/83 96 03/23/18 05:17 03/23/18 05:17 03/23/18 05:17 03/23/18 05:17 03/23/18 05:17 - Physical Exam General Appearance: Yes: Appropriately Dressed HEENT: positive: Tonsillar Erythema Respiratory/Chest: positive: Lungs Clear, Normal Breath Sounds Cardiovascular: positive: Regular Rate, Tachycardia Gastrointestinal/Abdominal: positive: Normal Bowel Sounds, Soft Musculoskeletal: positive: Normal Inspection Extremity: positive: Normal Capillary Refill, Normal Inspection, Normal Range of Motion Integumentary: positive: Normal Color, Dry, Warm Neurologic: positive: Fully Oriented, Alert, Normal Mood/Affect *DC/Admit/Observation/Transfer Diagnosis at time of Disposition: Influenza A URI (upper respiratory infection) Qualifiers: URI type: unspecified URI Qualified Code(s): J06.9 - Acute upper respiratory infection, unspecified - Discharge Dispostion Disposition: HOME Condition at time of disposition: Fair - Prescriptions Prescriptions: Albuterol 0.083% Nebulizer Anastasia [Ventolin 0.083% Nebulizer Soln -] 1 neb NEB Q4H PRN #1 vial PRN Reason: Cough Oseltamivir Phosphate [Tamiflu -] 75 mg PO BID #10 capsule - Referrals - Patient Instructions Printed Discharge Instructions: DI for Viral Upper Respiratory Infection -- Adult Additional Instructions: drink plenty of fluids take tamiflu as prescribed, take tylenol every 6 hours as needed for fever Additional Instructions: * Please call your personal physician to report your Emergency Department visit and to report your progress, if any. * If there is no improvement in symptoms in 2 days call your physician. * Return to the Emergency Department for any worsening symptoms. - Post Discharge Activity
[2018-03-23 06:23] VITALS: BP 124/83; PULSE 104; TEMP 97.7; BMI 36.0
--- NOTE | 2018-03-23 06:27 | PDOC ---
*Physical Exam - Vital Signs Last Vital Signs Temp Pulse Resp BP Pulse Ox 97.7 F 104 H 18 124/83 96 03/23/18 05:17 03/23/18 05:17 03/23/18 05:17 03/23/18 05:17 03/23/18 05:17 Medical Decision Making - Medical Decision Making 03/23/18 Patient seen by the advanced practice provider under my direct supervision. Ancillary testing reviewed as necessary. I agree with plan as outlined by the advanced practice provider. *DC/Admit/Observation/Transfer Diagnosis at time of Disposition: URI (upper respiratory infection) Qualifiers: URI type: unspecified URI Qualified Code(s): J06.9 - Acute upper respiratory infection, unspecified - Discharge Dispostion Condition at time of disposition: Fair - Prescriptions Prescriptions: Albuterol 0.083% Nebulizer Anastasia [Ventolin 0.083% Nebulizer Soln -] 1 neb NEB Q4H PRN #1 vial PRN Reason: Cough Oseltamivir Phosphate [Tamiflu -] 75 mg PO BID #10 capsule - Referrals - Patient Instructions Printed Discharge Instructions: DI for Viral Upper Respiratory Infection -- Adult Additional Instructions: drink plenty of fluids - Post Discharge Activity
== END 2018-03-23 07:10 | disposition home or self-care (01) ==
LOC: JER 05:17
PROC: 3E0F7GC Introduction of Other Therapeutic Substance into Respiratory Tract, Via Natural or Artificial Opening (ICD-10-PCS; principal; 2018-03-23)
DX: J09.X2 Influenza due to identified novel influenza A virus with other respiratory manifestations (principal); I10 Essential (primary) hypertension
CPT/HCPCS: 87070; 87804; 87880; 99281-25

== ENCOUNTER 2018-07-01 12:15 | Emergency (ER) | payer OTHER ==
[2018-07-01] MEDS ORDERED: ASPIRIN 81 MG CHEWABLE TABLETS PO ONE (13:02)
--- NOTE | 2018-07-01 13:03 | PDOC ---
Rapid Medical Evaluation Time Seen by Provider: 07/01/18 13:00 Medical Evaluation: Allergies Allergy/AdvReac Type Severity Reaction Status Date / Time No Known Allergies Allergy Verified 03/23/18 06:23 07/01/18 13:00 I have performed a brief in-person evaluation of this patient. The patient presents with a chief complaint of: Chest pain x 2 days Pertinent physical exam findings: sinus tachycardia on EKG otherwise NAD I have ordered the following: Cardiac work up, U preg D-Dimer The patient will proceed to the ED for further evaluation. Discharge Disposition - Diagnosis Chest pain - Referrals - Patient Instructions - Post Discharge Activity
[2018-07-01 13:14] VITALS: BMI 36.7
[2018-07-01] MEDS ORDERED: FAMOTIDINE 20 MG/50 ML IVPB 20 MG/50 ML MG IVPB ONE ×2 (13:53→13:57)
[2018-07-01] MEDS ORDERED: ASPIRIN 81 MG CHEWABLE TABLETS ONE (13:56)
[2018-07-01 14:32] LABS: BASO % 0.4 % (0-2.0); EOS % 0.4 % (0-4.5); HEMATOCRIT 37.4 % (32.4-45.2); HEMOGLOBIN 12.3 GM/dL (10.7-15.3); LYMPH % 10.8 % (8-40); MCH 28.1 pg (25.7-33.7); MEAN CELL VOLUME 85.4 fl (80-96); MEAN PLT VOLUME 8.6 fl (7.5-11.1); MONO % 6.3 % (3.8-10.2); NEUT % 82.1 % (42.8-82.8); PLATELET COUNT 308 K/MM3 (134-434); RBC 4.37 M/mm3 (3.60-5.2); RDW 14.2 % (11.6-15.6); WHITE BLOOD COUNT 8.2 K/mm3 (4.0-10.0)
[2018-07-01] MEDS ORDERED: IBUPROFEN 400 MG TABLET (FP) PO ONE ×2 (14:40→15:41)
[2018-07-01 14:47] LABS: INR 1.15 (0.83-1.09); PROTHROMBIN TIME (PATIENT) 13.6 SEC (9.7-13.0)
[2018-07-01 15:06] LABS: ALK PHOS 96 U/L (45-117); ANION GAP 6 MMOL/L (8-16); BILIRUBIN,TOTAL 0.4 mg/dL (0.2-1); BLOOD UREA NITROGEN 11 mg/dL (7-18); CALCIUM 9.3 mg/dL (8.5-10.1); CHLORIDE 104 mmol/L (98-107); CO2 27 mmol/L (21-32); CREATININE 0.6 mg/dL (0.55-1.3); GLUCOSE,RANDOM 98 mg/dL (74-106); MAGNESIUM 2.2 mg/dL (1.8-2.4); POTASSIUM 3.9 mmol/L (3.5-5.1); SGOT/AST 10 U/L (15-37); SGPT/ALT 22 U/L (13-61); SODIUM 137 mmol/L (136-145); TOT PROT 8.3 g/dl (6.4-8.2)
--- NOTE | 2018-07-01 16:50 | PDOC ---
Documentation entered by Letty Tapia SCRIBE, acting as scribe for Cristin Farooq MD. Cristin Farooq MD: This documentation has been prepared by the Regina mims Daisy, SCRIBE, under my direction and personally reviewed by me in its entirety. I confirm that the documentation accurately reflects all work, treatment, procedures, and medical decision making performed by me. History of Present Illness - General Chief Complaint: Chest Pain Stated Complaint: CHEST PAIN Time Seen by Provider: 07/01/18 13:00 History Source: Patient Exam Limitations: No Limitations - History of Present Illness Initial Comments: 07/01/18 13:49 The patient is a 47 YOF with a PMH of HTN and fibromyalgia who presents to the ER for chest tightness and shortness of breath for the past 2 days. She states the chest pain is exacerbated with deep breathing or bending forward, but denies any radiation to the jaw or arm. The patient states the shortness of breath is worsened when lying flat and has also noticed an associated hoarse voice. She also endorses a diffuse headache. She has been taking Tylenol and Advil at home with minimal improvement. Patient reports similar symptoms in March at which time she had a D-dimer, which was elevated and a CT scan, which showed a possible PE. She was prescribed lovenox. Patient was seen by Dr. Stein, and was told to have a repeat CT scan in June. Denies any recent leg swelling, fever, chills, N/V/D/C. Allergies: NKDA Social Hx: Denies toxic habits. Surgeries: None reported. Past History - Past Medical History Allergies/Adverse Reactions: Allergies Allergy/AdvReac Type Severity Reaction Status Date / Time No Known Allergies Allergy Verified 07/01/18 13:15 Home Medications: Ambulatory Orders Enalapril Maleate 20 mg PO DAILY 08/27/16 Hydrochlorothiazide [Hctz -] 25 mg PO DAILY 03/24/17 Rivaroxaban [Xarelto -] 15 mg PO DAILY 11/24/17 Albuterol Sulfate Inhaler - [Ventolin HFA Inhaler -] 1 - 2 inh PO Q4H PRN #1 inhaler 03/23/18 Oseltamivir Phosphate [Tamiflu -] 75 mg PO BID #10 capsule 03/23/18 COPD: No Disorders: Yes (ovarian cyst, status post hysterectomy) HTN: Yes Other medical history: fibromyalgia - Surgical History Abdominal Surgery: Yes - Suicide/Smoking/Psychosocial Hx Smoking History: Never smoked Have you smoked in the past 12 months: No Information on smoking cessation initiated: No Hx Alcohol Use: No Drug/Substance Use Hx: No Substance Use Type: None Review of Systems - Review of Systems Able to Perform ROS?: Yes Comments:: 07/01/18 14:09 ADULT ROS GENERAL/CONSTITUTIONAL: No fever or chills. No weakness. HEAD, EYES, EARS, NOSE AND THROAT: No change in vision. No ear pain or discharge. No sore throat. CARDIOVASCULAR: No shortness of breath. (+) chest tightness. RESPIRATORY: No cough, wheezing, or hemoptysis. GASTROINTESTINAL: No nausea, vomiting, diarrhea or constipation. GENITOURINARY: No dysuria, frequency, or change in urination. MUSCULOSKELETAL: No joint or muscle swelling or pain. No neck or back pain. SKIN: No rash NEUROLOGIC: No headache, vertigo, loss of consciousness, or change in strength/ sensation. ENDOCRINE: No increased thirst. No abnormal weight change. HEMATOLOGIC/LYMPHATIC: No anemia, easy bleeding, or history of blood clots. ALLERGIC/IMMUNOLOGIC: No hives or skin allergy. *Physical Exam - Vital Signs Last Vital Signs Temp Pulse Resp BP Pulse Ox 99.3 F 109 H 16 153/93 100 07/01/18 12:15 07/01/18 12:15 07/01/18 12:15 07/01/18 12:15 07/01/18 12:15 - Physical Exam Comments: 07/01/18 14:45 ADULT EXAM GENERAL: Awake, alert, and fully oriented, in no acute distress NECK: Normal ROM, supple, no lymphadenopathy, JVD, or masses LUNGS: Breath sounds equal, clear to auscultation bilaterally. No wheezes, and no crackles HEART: (+) Midly tachycardic but regular rhythm, normal S1 and S2, no murmurs, rubs or gallops ABDOMEN: Soft, nontender, normoactive bowel sounds. No guarding, no rebound. No masses EXTREMITIES: No pitting edema. NEUROLOGICAL: Cranial nerves II through XII grossly intact. SKIN: Warm, Dry, normal turgor, no rashes or lesions noted. ED Treatment Course - LABORATORY CBC & Chemistry Diagram: 07/01/18 14:24 07/01/18 14:24 - ADDITIONAL ORDERS Additional order review: Laboratory Results 07/01/18 07/01/18 07/01/18 14:47 14:24 14:24 PT with INR INR D-Dimer 641 H Sodium 137 Potassium 3.9 Chloride 104 Carbon Dioxide 27 Anion Gap 6 L BUN 11 Creatinine 0.6 Creat Clearance w eGFR 106.25 Random Glucose 98 Calcium 9.3 Magnesium 2.2 Total Bilirubin 0.4 AST 10 L ALT 22 Alkaline Phosphatase 96 Creatine Kinase 66 Troponin I < 0.02 Total Protein 8.3 H Albumin 4.0 Urine HCG, Qual Negative 07/01/18 14:24 PT with INR 13.60 H INR 1.15 H D-Dimer Sodium Potassium Chloride Carbon Dioxide Anion Gap BUN Creatinine Creat Clearance w eGFR Random Glucose Calcium Magnesium Total Bilirubin AST ALT Alkaline Phosphatase Creatine Kinase Troponin I Total Protein Albumin Urine HCG, Qual 07/01/18 14:24 RBC 4.37 MCV 85.4 MCHC 33.0 RDW 14.2 MPV 8.6 D Neutrophils % 82.1 D Lymphocytes % 10.8 D Monocytes % 6.3 Eosinophils % 0.4 D Basophils % 0.4 - RADIOLOGY Radiology Studies Ordered: Category Date Time Status CHEST CT WITH CONTRAST [CT] Stat CT Scan 07/01/18 15:44 Ordered CHEST PA & LAT [RAD] Stat Radiology 07/01/18 14:36 Ordered - Medications Given in the ED: ED Medications Discontinued Medications Generic Name Dose Route Start Last Admin Trade Name Freq PRN Reason Stop Dose Admin Aspirin 162 mg 07/01/18 13:02 07/01/18 14:00 Asa - PO 07/01/18 13:03 162 mg ONCE ONE Administration Famotidine/Sodium Chloride 20 mg in 50 mls @ 100 mls/hr 07/01/18 13:53 14:00 Pepcid 20 Mg Premixed Ivpb - IVPB 07/01/18 14:22 100 mls/hr ONCE ONE Administration Ibuprofen 800 mg 07/01/18 14:40 07/01/18 15:39 Motrin - PO 07/01/18 14:41 800 mg ONCE ONE Administration Medical Decision Making - Medical Decision Making 07/01/18 16:46 Pt presents to the ED complaining of atypical chest pain and shortness of breath. Questionable history of PE--on lovenox last year. Pain is most consistent with musculoskeletal pain, but PE remains on the differential given her tachycardia and her positive D dimer. Will check CT angio to rule out PE. Patient is extremely low risk for cardiovascular disease--heart score is 0. Will likely discharge home if CT PE is negative. *DC/Admit/Observation/Transfer Diagnosis at time of Disposition: Chest pain - Referrals - Patient Instructions - Post Discharge Activity
[2018-07-01 19:15] VITALS: BP 148/90; PULSE 99; TEMP 98.1
--- NOTE | 2018-07-01 20:07 | PDOC ---
*Physical Exam - Vital Signs Last Vital Signs Temp Pulse Resp BP Pulse Ox 98.1 F 99 H 20 148/90 99 07/01/18 18:40 07/01/18 18:40 07/01/18 18:40 07/01/18 18:40 07/01/18 18:40 ED Treatment Course - LABORATORY CBC & Chemistry Diagram: 07/01/18 14:24 07/01/18 14:24 - ADDITIONAL ORDERS Additional order review: Laboratory Results 07/01/18 07/01/18 07/01/18 14:47 14:24 14:24 PT with INR INR D-Dimer 641 H Sodium 137 Potassium 3.9 Chloride 104 Carbon Dioxide 27 Anion Gap 6 L BUN 11 Creatinine 0.6 Creat Clearance w eGFR 106.25 Random Glucose 98 Calcium 9.3 Magnesium 2.2 Total Bilirubin 0.4 AST 10 L ALT 22 Alkaline Phosphatase 96 Creatine Kinase 66 Troponin I < 0.02 Total Protein 8.3 H Albumin 4.0 Urine HCG, Qual Negative 07/01/18 14:24 PT with INR 13.60 H INR 1.15 H D-Dimer Sodium Potassium Chloride Carbon Dioxide Anion Gap BUN Creatinine Creat Clearance w eGFR Random Glucose Calcium Magnesium Total Bilirubin AST ALT Alkaline Phosphatase Creatine Kinase Troponin I Total Protein Albumin Urine HCG, Qual 07/01/18 14:24 RBC 4.37 MCV 85.4 MCHC 33.0 RDW 14.2 MPV 8.6 D Neutrophils % 82.1 D Lymphocytes % 10.8 D Monocytes % 6.3 Eosinophils % 0.4 D Basophils % 0.4 - Medications Given in the ED: ED Medications Discontinued Medications Generic Name Dose Route Start Last Admin Trade Name Miguel PRN Reason Stop Dose Admin Aspirin 162 mg 07/01/18 13:02 07/01/18 14:00 Asa - PO 07/01/18 13:03 162 mg ONCE ONE Administration Famotidine/Sodium Chloride 20 mg in 50 mls @ 100 mls/hr 07/01/18 13:53 14:00 Pepcid 20 Mg Premixed Ivpb - IVPB 07/01/18 14:22 100 mls/hr ONCE ONE Administration Ibuprofen 800 mg 07/01/18 14:40 07/01/18 15:39 Motrin - PO 07/01/18 14:41 800 mg ONCE ONE Administration Medical Decision Making - Medical Decision Making 07/01/18 20:03 pt signed out from Dr Farooq at 4pm pending CTA to eval for PE Troponin negative, labs are otherwise unremarkable. D-dimer is elevated hence CTA to evaluate for pulmonary embolism. CT angios negative for pulmonary embolism, left thyroid lobe enlargement, follow up outpatient ultrasound, small hiatal hernia, no acute chest pathology VS reviewed, initial tachycardia, recheck and improved. pt well appearing, NAD Pt to be discharged in stable condition. Patient and family made aware of impression and plan, return precautions discussed (including but not limited to worsening pain or symptoms), fevers, or signs of infection, chest pain, respiratory distress, inability to tolerate oral intake, dehydration, syncope, or neurologic changes). Follow up with PMD and/or specialist as recommended, follow up information provided, take medications as instructed for duration of time. continue with supportive care, avoid triggers and precipitants. All questions answered to patient's satisfaction and expressed understanding and comfort with this. Patient does not suffer from an acute life-threatening medical condition at this time she is safe for outpatient follow-up. 07/01/18 20:04 07/01/18 20:07 *DC/Admit/Observation/Transfer Diagnosis at time of Disposition: Chest pain - Discharge Dispostion Disposition: HOME Condition at time of disposition: Improved Decision to Admit order: No - Referrals Referrals: [facility] [Provider Group] [facility] [Provider Group] - Patient Instructions Printed Discharge Instructions: DI for Atypical Chest Pain Additional Instructions: 1) Please follow-up with your primary care doctor in the next 1-2 days. Please call tomorrow for for any urgent issues. 2) You were given a copy of the tests performed today. Please bring the results with you and review them with your primary care doctor. Your laboratory / imaging results were normal, including your CT scan. there was incidental mild enlargement of thyroid lobe, get an ultrasound as outpatient no blood clot. no chest pathology small hiatal hernia noted. 3) If you have any worsening of symptoms or any other concerns please return to the ED immediately. Return if worsening symptoms including fevers, headache, vomiting, visual or hearing disturbances, abdominal pain, chest pain, shortness of breath, syncope, dehydration, inability to take things by mouth/vomiting, altered mental status, or worsening concerning symptoms. 4) Please continue taking your home medications as directed. your medications on discharge include tylenol/motrin for pain control . side effects may include upset stomach, abdominal pain, vomiting, or diarrhea. do not drink alcohol with your medications. Stay well hydrated and rest adequately. Make an appointment. If you cannot follow-up with your primary care doctor please return to the ED - Post Discharge Activity
--- NOTE | 2018-07-02 08:29 | EKG ---
Test Reason : Blood Pressure : / mmHG Vent. Rate : 109 BPM Atrial Rate : 109 BPM P-R Int : 140 ms QRS Dur : 096 ms QT Int : 350 ms P-R-T Axes : 049 006 034 degrees QTc Int : 471 ms SINUS TACHYCARDIA OTHERWISE NORMAL ECG WHEN COMPARED WITH ECG OF 23-NOV-2017 23:27, NO SIGNIFICANT CHANGE WAS FOUND Confirmed by JUDITH MOLINA MD ([id number]) on 07/02/2018 8:28:48 AM Referred By: Confirmed By:JUDITH MOLINA MD
== END 2018-07-01 20:41 | disposition home or self-care (01) ==
LOC: JER 12:15
PROC: 3E033GC Introduction of Other Therapeutic Substance into Peripheral Vein, Percutaneous Approach (ICD-10-PCS; principal; 2018-07-01)
DX: R07.9 Chest pain, unspecified (principal); I10 Essential (primary) hypertension
CPT/HCPCS: 36415; 71260-TC; 80053; 82550; 83735; 84484; 84703; 85025; 85379; 85610; 93005; 93010; 99284-25

== ENCOUNTER 2021-07-16 09:31 | Emergency (ER) | payer OTHER ==
[2021-07-16 10:47] VITALS: BP 167/92; PULSE 100; TEMP 98.9; BMI 35.4
== END 2021-07-16 11:10 | disposition home or self-care (01) ==
LOC: FER 09:31
DX: S90.851A Superficial foreign body, right foot, initial encounter (principal)
CPT/HCPCS: 73630-TC-RT-FY; 99284-25

== ENCOUNTER 2022-02-05 10:46 | Emergency (ER) | payer OTHER ==
[2022-02-05 11:23] VITALS: RESP 20; TEMP 98.6; BMI 37.8
[2022-02-05] MEDS ORDERED: MECLIZINE HCL 25 MG TABLET (FP) PO ONE (12:24)
[2022-02-05] MEDS ORDERED: MECLIZINE HCL 25 MG TABLET (FP) ONE (12:34)
[2022-02-05 12:38] LABS: BASO % 0.6 % (0-2.0); HEMATOCRIT 37.6 % (32.4-45.2); HEMOGLOBIN 12.6 GM/dL (10.7-15.3); LYMPH % 26.2 % (8-40); MCH 27.9 pg (25.7-33.7); MCHC 33.4 g/dl (32.0-36.0); MEAN CELL VOLUME 83.6 fl (80-96); MEAN PLT VOLUME 8.2 fl (7.5-11.1); MONO % 7.5 % (3.8-10.2); NEUT % 63.7 % (42.8-82.8); PLATELET COUNT 357 10^3/uL (134-434); RDW 13.7 % (11.6-15.6); WHITE BLOOD COUNT 6.4 K/mm3 (4.0-10.0)
[2022-02-05 12:40] VITALS: BP 132/90; PULSE 69
[2022-02-05] MEDS ORDERED: SODIUM CHLORIDE 1,000 ML IV STA (12:45)
[2022-02-05] MEDS ORDERED: ACETAMINOPHEN 1000 MG/100 ML BAG IVPB ONE (12:55)
[2022-02-05] MEDS ORDERED: METOCLOPRAMIDE HCL INJECTION 10 MG/2 ML VIAL IVPB ONE (12:55)
[2022-02-05 12:57] LABS: CALCIUM 9.8 mg/dL (8.5-10.1)
[2022-02-05 12:59] LABS: ALBUMIN 3.7 g/dl (3.4-5.0); BLOOD UREA NITROGEN 14.8 mg/dL (7-18)
[2022-02-05 13:01] LABS: CREATININE 0.7 mg/dL (0.55-1.3)
[2022-02-05 13:03] LABS: BILIRUBIN,TOTAL 0.3 mg/dL (0.2-1); TOT PROT 7.9 g/dl (6.4-8.2)
[2022-02-05] MEDS ORDERED: ACETAMINOPHEN INJECTION 100 ML IVPB ONE (13:33)
[2022-02-05] MEDS ORDERED: METOCLOPRAMIDE HCL INJECTION 10 MG/2 ML VIAL ONE (13:33)
== END 2022-02-05 15:52 | disposition home or self-care (01) ==
LOC: JER 10:46
PROC: 3E0333Z Introduction of Anti-inflammatory into Peripheral Vein, Percutaneous Approach (ICD-10-PCS; principal; 2022-02-05)
PROC: 3E033GC Introduction of Other Therapeutic Substance into Peripheral Vein, Percutaneous Approach (ICD-10-PCS; 2022-02-05)
PROC: 3E0337Z Introduction of Electrolytic and Water Balance Substance into Peripheral Vein, Percutaneous Approach (ICD-10-PCS; 2022-02-05)
DX: R42 Dizziness and giddiness (principal)
CPT/HCPCS: 0241U-QW; 36415; 70450-TC; 71046-TC-FY; 80053; 84484; 85025; 93005; 93010; 99285-25